=== PATIENT | female | born 1995 | race Caucasian/White ===

== ENCOUNTER 2018-02-10 01:25 | Emergency (ER) | payer SELFPAY ==
[~2018-02-10] VITALS: Ht 172.7 cm; Wt 72.7 kg
[2018-02-10] MEDS ORDERED: UNK BIRTH CONTROL PO (01:34)
[2018-02-10 07:00] VITALS: BP 119/68
== END 2018-02-10 07:06 | disposition home or self-care (01) ==
LOC: EMS 01:27
DX: K21.9 Gastro-esophageal reflux disease without esophagitis (principal); R07.89 Other chest pain; Z87.891 Personal history of nicotine dependence
CPT/HCPCS: 93005; 99284